=== PATIENT | female | born 1985 | race Caucasian/White ===

== ENCOUNTER 2017-05-29 22:34 | Emergency (ER) | payer OTHER, SELFPAY ==
[2017-05-29 22:48] VITALS: BP 117/86; PULSE 66; RESP 20; TEMP 98.8; O2SAT 99
[2017-05-29] MEDS ORDERED: Oxycodone/Acetaminophen 5/325 mg Tab PO STA (23:13)
--- NOTE | 2017-05-29 23:15 | ED PDOC ---
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 Past Medical History Reviewed: Historical Data, Nursing Documentation, Vital Signs Vital Signs: Last Vital Signs Temp 98.8 F 05/29/17 22:45 Pulse 66 05/29/17 22:45 Resp 20 05/29/17 22:45 BP 117/86 05/29/17 22:45 Pulse Ox 99 05/29/17 22:45 - Medical History PMH: No Chronic Diseases Denies: HIV - Surgical History Surgical History: No Surg Hx - Family History Family History: States: No Known Family Hx - Living Arrangements Living Arrangements: With Family - Social History Current smoker - smoking cessation education provided: No Alcohol: None Drugs: Denies - Home Medications Home Medications: Ambulatory Orders Medication Instructions Recorded Cyanocobalamin [Vitamin B12] 5,000 mcg PO DAILY 06/26/15 Ibuprofen [Advil] 400 mg PO Q6H PRN 06/26/15 oxyCODONE/Acetaminophen [Percocet 1 ea PO Q6H PRN #10 tab 05/29/17 5/325 mg Tab] - Allergies Allergies/Adverse Reactions: Allergies Allergy/AdvReac Type Severity Reaction Status Date / Time No Known Allergies Allergy Verified 06/26/15 09:32 Review of Systems ROS Statement: Except As Marked, All Systems Reviewed And Found Negative Respiratory: Negative for: Cough Skin: Positive for: Other Physical Exam - Reviewed Nursing Documentation Reviewed: Yes Vital Signs Reviewed: Yes - Physical Exam Appears: Positive for: Well, Non-toxic, No Acute Distress Head Exam: Positive for: ATRAUMATIC, NORMAL INSPECTION, NORMOCEPHALIC Skin: Positive for: Normal Color, Warm, DRY Eye Exam: Positive for: Normal appearance ENT: Positive for: Normal ENT Inspection Neck: Positive for: Normal, Painless ROM Respiratory: Negative for: Accessory Muscle Use Back: Positive for: Normal Inspection Extremity: Positive for: Normal ROM, Tenderness, Other ((+) plantar warts bilateral). Negative for: Deformity Neurologic/Psych: Positive for: Alert, Oriented - ECG O2 Sat by Pulse Oximetry: 99 Disposition - Clinical Impression Clinical Impression: Plantar wart of both feet - Patient ED Disposition Is Patient to be Admitted: No Counseled Patient/Family Regarding: Diagnosis, Need For Followup, Rx Given - Disposition Referrals: Podiatry Clinic [Outside] Disposition: Routine/Home Disposition Time: 23:16 Condition: GOOD Prescriptions: oxyCODONE/Acetaminophen [Percocet 5/325 mg Tab] 1 ea PO Q6H PRN #10 tab PRN Reason: Pain, Severe (8-10) Instructions: Plantar Wart (ED) Print Language: THAI
[2017-05-29] MEDS ORDERED: Oxycodone/Acetaminophen 5/325 mg Tab ONE (23:20)
== END 2017-05-29 23:38 | disposition home or self-care (01) ==
LOC: H.ER 22:34
DX: B07.0 Plantar wart (principal)

== ENCOUNTER 2017-08-15 13:09 | Emergency (ER) | payer OTHER ==
[2017-08-15 13:28] VITALS: BP 115/73; PULSE 62; RESP 18; TEMP 97.9; O2SAT 99
[2017-08-15] MEDS ORDERED: Oxycodone/Acetaminophen 5/325 mg Tab PO STA (13:50)
--- NOTE | 2017-08-15 13:52 | ED PDOC ---
HPI: Back Time Seen by Provider: 08/15/17 13:28 Chief Complaint (Nursing): Back Pain Chief Complaint (Provider): Back Pain History Per: Patient History/Exam Limitations: no limitations Current Symptoms Are (Timing): Still Present Additional Complaint(s): 32 y/o female presents to the emergency department with a complaint of a middle back pain along the spine that radiates down to the lower legs bilaterally x3 days. Patient describes pain feels like "spinal bones collide against one another causing pain." Reports that she cannot lay or sit for long periods of time and gets up several times throughout the night to walk around to relieve the pain. States she took 2 tablets of Advil yesterday, 08/14/2017, and an unknown medication from her country. Denies pain with urination or any further medical complaints. Past Medical History Reviewed: Historical Data, Nursing Documentation, Vital Signs Vital Signs: Last Vital Signs Temp 97.9 F 08/15/17 13:26 Pulse 62 08/15/17 13:26 Resp 18 08/15/17 13:26 BP 115/73 08/15/17 13:26 Pulse Ox 99 08/15/17 13:26 - Medical History PMH: Denies: HIV - Surgical History Surgical History: No Surg Hx - Family History Family History: States: Unknown Family Hx - Home Medications Home Medications: Ambulatory Orders Medication Instructions Recorded Cyanocobalamin [Vitamin B12] 5,000 mcg PO DAILY 06/26/15 Ibuprofen [Advil] 400 mg PO Q6H PRN 06/26/15 oxyCODONE/Acetaminophen [Percocet 1 ea PO Q6H PRN #10 tab 05/29/17 5/325 mg Tab] Cyclobenzaprine [Cyclobenzaprine 10 mg PO TID #20 tab 08/15/17 HCl] Ibuprofen [Motrin] 600 mg PO Q6 #20 tab 08/15/17 - Allergies Allergies/Adverse Reactions: Allergies Allergy/AdvReac Type Severity Reaction Status Date / Time No Known Allergies Allergy Verified 06/26/15 09:32 Review of Systems ROS Statement: Except As Marked, All Systems Reviewed And Found Negative (As per HPI, otherwise negative) Genitourinary Female: Negative for: Dysuria Musculoskeletal: Positive for: Back Pain (Midline region, along the spine), Leg Pain (b/l) Physical Exam - Reviewed Nursing Documentation Reviewed: Yes Vital Signs Reviewed: Yes - Physical Exam Appears: Positive for: Non-toxic, No Acute Distress Head Exam: Positive for: ATRAUMATIC, NORMAL INSPECTION, NORMOCEPHALIC Skin: Positive for: Normal Color, Warm, Dry Back: Positive for: Other (Thoracic midline tenderness and thoracic paraspinal tender). Negative for: Normal Inspection Neurologic/Psych: Positive for: Alert, Oriented (x3) - ECG O2 Sat by Pulse Oximetry: 99 (RA) Pulse Ox Interpretation: Normal Medical Decision Making Medical Decision Making: Time: 1350 Initial impression: Back pain Initial plan: --Urine DIP & Preg --Motrin 600 mg PO --Percocet 5/325 mg PO --Thoracic Spine (Dorsal) x-ray --Reevaluation Time: 1424 --Thoracic Spine (Dorsal) x-ray FINDINGS: BONES: Alignment maintained. No fracture. DISC SPACES: Normal. SOFT TISSUES: Normal. OTHER FINDINGS: None. IMPRESSION: Normal radiographs of the thoracic spine. Time: 1550 Upon provider reevaluation patient is feeling better, is medically stable, and requires no further treatment in the ED at this time. Patient will be discharged home with Rx for Cyclobenzaprine HCl 10 mg and Motrin 600 mg. Counseling was provided and all questions were answered regarding diagnosis and need for follow up with primary care doctor. There is agreement to discharge plan. Return if symptoms persist or worsen. Clinical Impression: Back pain Scribe Attestation: Documented by Lillie Peterson, acting as a scribe for Brittny Chaudhari PA-C Provider Scribe Attestation: All medical record entries made by the Scribe were at my direction and personally dictated by me. I have reviewed the chart and agree that the record accurately reflects my personal performance of the history, physical exam, medical decision making, and the department course for this patient. I have also personally directed, reviewed, and agree with the discharge instructions and disposition. Disposition - Clinical Impression Clinical Impression: Back pain - Patient ED Disposition Is Patient to be Admitted: No Counseled Patient/Family Regarding: Diagnosis, Need For Followup, Rx Given - Disposition Disposition: Routine/Home Disposition Time: 15:50 Condition: STABLE Prescriptions: Cyclobenzaprine [Cyclobenzaprine HCl] 10 mg PO TID #20 tab Ibuprofen [Motrin] 600 mg PO Q6 #20 tab Instructions: Back Pain (ED) Forms: [facility] (Sinhala) Print Language: PRYDEINIG
[2017-08-15] MEDS ORDERED: Oxycodone/Acetaminophen 5/325 mg Tab ONE (14:06)
--- NOTE | 2017-08-15 14:26 | RAD ---
HISTORY: pain COMPARISON: Correlation with CT angiography of the pulmonary arteries performed 06/26/2015. FINDINGS: BONES: Alignment maintained. No fracture. DISC SPACES: Normal. SOFT TISSUES: Normal. OTHER FINDINGS: None. IMPRESSION: Normal radiographs of the thoracic spine.
[2017-08-15 14:41] LABS: URINE BACTERIA RARE (<OCC); URINE BILIRUBIN NEGATIVE (NEGATIVE); URINE BLOOD SMALL (NEGATIVE); URINE COLOR YELLOW (YELLOW); URINE GLUCOSE (UA) NEG (Normal); URINE KETONE NEGATIVE (NEGATIVE); URINE LEUKOCYTE ESTERASE NEG Leu/uL (Negative); URINE PROTEIN NEGATIVE (NEGATIVE); URINE UROBILINOGEN 0.2-1.0 mg/dL (0.2-1.0); WBC URINE 1 /hpf (0-5)
[2017-08-15 14:49] LABS: RBC URINE 6 /hpf (0-3)
== END 2017-08-15 15:56 | disposition home or self-care (01) ==
LOC: H.ER 13:09
DX: M54.9 Dorsalgia, unspecified (principal)